=== PATIENT | female | born 1970 | race Caucasian/White ===

== ENCOUNTER 2019-12-29 20:37 | Emergency (ER) | payer BC, SELFPAY ==
[2019-12-29 20:40] VITALS: BP 122/75; PULSE 84; RESP 16; TEMP 36.5; O2SAT 96; BMI 24.7
--- NOTE | 2019-12-29 21:04 | DI.RAD.S_ITS ---
PROCEDURE: XR ANKLE RT MIN 3V INDICATIONS: R ankle pain, dog ran into foot TECHNIQUE: 3 views of the ankle were acquired. COMPARISON: None. FINDINGS: Bones: No fractures or dislocations. Ankle mortise is normally aligned. No suspicious bony lesions. Soft tissues: No tibiotalar joint effusion. Achilles tendon appears normal. IMPRESSION: No fracture. No osseous lesion. If symptoms and/or clinical suspicion for pathology persists, further assessment with repeat radiographs (7-10 days) or advanced imaging (e.g. CT, MRI or bone scan) may be helpful. Dictated by: Betty Bonilla MD, PhD on 12/29/2019 at 21:27 Approved by: Betty Bonilla MD, PhD on 12/29/2019 at 21:28
--- NOTE | 2019-12-29 21:04 | DI.RAD.S_ITS ---
PROCEDURE: XR FOOT RT MIN 3V INDICATIONS: R ankle pain, dog ran into foot TECHNIQUE: 3 views of the foot were acquired. COMPARISON: [facility], , FOOT 3V RIGHT, 09/08/2016, 9:57. FINDINGS: Bones: No fractures or dislocations. No suspicious bony lesions. Lesion in the 5th metatarsal is stable compared to prior examination compatible compatible with benign etiology. Soft tissues: No tibiotalar joint effusion. Achilles tendon appears normal. IMPRESSION: No fracture. No osseous lesion. If symptoms and/or clinical suspicion for pathology persists, further assessment with repeat radiographs (7-10 days) or advanced imaging (e.g. CT, MRI or bone scan) may be helpful. Dictated by: Betty Bonilla MD, PhD on 12/29/2019 at 21:28 Approved by: Betty Bonilla MD, PhD on 12/29/2019 at 21:29
[2019-12-29 22:38] VITALS: BP 110/71; PULSE 74; O2SAT 96
--- NOTE | 2019-12-30 | ED_ITS ---
HPI - Extremity Injury (Lower) General Chief Complaint: Extremity Injury, Lower Stated Complaint: RIGHT ANKLE INJURY Time Seen by Provider: 12/29/19 23:48 Source: patient and family Mode of arrival: Family Vehicle Limitations: no limitations History of Present Illness HPI Narrative: Patient here for injury to the right ankle. Her dog knocked her over. Denies any other injuries. Complains of lateral malleolus pain and swelling. Pain radiates proximally. There is no pain directly over the proximal fibula. Has tingling to the toes. Patient states that she has crutches at home Related Data Home Medications Medication Instructions Recorded Confirmed eletriptan [Relpax] #0 06/15/17 06/16/18 bupropion HCl 150 mg tablet,12 hr 150 mg PO DAILY 03/04/18 06/16/18 sustained-release Previous Rx's Medication Instructions Recorded azithromycin 250 mg tablet See Rx Instructions PO .COMPLEX #6 06/16/18 tab fluticasone propionate 50 2 spray NASAL DAILY #9.9 gram 06/16/18 mcg/actuation nasal spray,suspension Allergies Allergy/AdvReac Type Severity Reaction Status Date / Time amoxicillin [AMOXICILLIN] Allergy Mild RASH Verified 06/16/18 08:25 clindamycin [CLINDAMYCIN] Allergy Mild RASH Verified 06/16/18 08:25 Review of Systems Review of Systems Narrative: GENERAL: Denies chills, fatigue, malaise, fever, sweats. MUSCULOSKELETAL: denies weakness, complains joint pain, or bony pain SKIN: Denies rash, skin lesions NEUROLOGIC: Denies weakness, headache, numbness, change in speech, confusion, seizures, incoordination. PSYCHIATRIC: No concerning psychosocial issues. ROS Unobtainable: All systems reviewed & are unremarkable except as noted in HPI and below Patient History Medical History (Updated 12/30/19 @ 00:10 by Luis Alberto Lopez MD) Migraines (Chronic) Social History Smoking Status: Never smoker Smoking Status: Never smoker Exam Narrative Exam Narrative: GENERAL: patient appears stated age. Well-nourished, well- developed patient, in no distress, not toxic HEAD: Atraumatic. Normocephalic. EXTREMITIES: Right knee to toes exposed. Nontender knee. No proximal fibular tenderness. Foot is warm soft and pink with strong pedal pulse with light touch intact to toes although patient states feels tingly to the toes. Limited range of motion at the ankle due to pain. There is edema and bruising to the lateral malleolus. No gross deformity. Unable to bear weight due to pain. NEURO: AOx4. SKIN: No rash or erythema of visible areas PSYCH: Not anxious, is cooperative Initial Vital Signs Initial Vital Signs: Vital Signs Temperature 97.7 F 12/29/19 20:40 Pulse Rate 84 12/29/19 20:40 Respiratory Rate 16 12/29/19 20:40 Blood Pressure 122/75 12/29/19 20:40 Pulse Oximetry 96 12/29/19 20:40 Procedures Orthopedic Splinting/Casting Injury #1: Side: right Lower Extremity Injury Location: ankle Lower Extremity Immobilizer: AirCast Post splinting neuro exam: intact Post splinting vascular exam: intact Placed by: Nursing Course Orders Ordered: ED Orders 12/29/19 21:04 XR ankle RT min 3V Stat XR foot RT min 3V Stat Discontinued Medications Hydrocodone Bitart/Acetaminophen (Vicodin 5/325 Prepack) 1 bottle MISC SEEINSTR ONE Stop: 12/30/19 00:07 Last Admin: 12/30/19 00:12 Dose: 1 bottle Documented by: ARGELIA Hydrocodone Bitart/Acetaminophen ([place] 5/325) 1 tab PO NOW ONE Stop: 12/30/19 00:07 Last Admin: 12/30/19 00:12 Dose: 1 tab Documented by: ARGELIA Ondansetron HCl (Zofran Odt) 4 mg SL NOW ONE Stop: 12/30/19 00:07 Last Admin: 12/30/19 00:12 Dose: 4 mg Documented by: ARGELIA Reevaluation(s) Reevaluation #1: Reviewed x-rays with patient. She understands may need a repeat x-ray if not improving 7 or 10 days. Time: 00:13 Vital Signs Vital signs: Vital Signs - 8 hr 12/29/19 20:40 12/29/19 22:38 12/30/19 00:02 Temperature 97.7 F Pulse Rate 84 74 68 Respiratory Rate 16 16 Blood Pressure 122/75 110/71 117/72 Pulse Oximetry 96 96 100 12/30/19 00:22 Temperature 97.6 F Pulse Rate Respiratory Rate Blood Pressure Pulse Oximetry MDM - Extremity Injury (Lower) Differential Diagnosis Differential diagnosis: Likely ankle sprain and strain and ankle fracture Imaging Data Extremity x-ray #1: Radiologist's Impression: [address] [address] XRay Report Signed Patient: Emily Kaba [facility]#: [id number] : 1970Acct:[id number] Age/Sex: 49 / FDate of Service: 12/29/19 Loc: ED Accession Number: [id number] Procedure: XR ankle RT min 3V Ordering Provider: Luis Alberto Lopez MD PROCEDURE: XR ANKLE RT MIN 3V INDICATIONS: R ankle pain, dog ran into foot TECHNIQUE: 3 views of the ankle were acquired. COMPARISON: None. FINDINGS: Bones: No fractures or dislocations. Ankle mortise is normally aligned. No suspicious bony lesions. Soft tissues: No tibiotalar joint effusion. Achilles tendon appears normal. IMPRESSION: No fracture. No osseous lesion. If symptoms and/or clinical suspicion for pathology persists, further assessment with repeat radiographs (7-10 days) or advanced imaging (e.g. CT, MRI or bone scan) may be helpful. Dictated by: Betty Bonilla MD, PhD on 12/29/2019 at 21:27 Approved by: Betty Bonilla MD, PhD on 12/29/2019 at 21:28 Extremity x-ray #2: Radiologist's Impression: [address] [address] XRay Report Signed Patient: Emily Kaba [facility]#: [id number] : 1970Acct:[id number] Age/Sex: 49 / FDate of Service: 12/29/19 Loc: ED Accession Number: [id number] Procedure: XR foot RT min 3V Ordering Provider: Luis Alberto Lopez MD PROCEDURE: XR FOOT RT MIN 3V INDICATIONS: R ankle pain, dog ran into foot TECHNIQUE: 3 views of the foot were acquired. COMPARISON: [facility], FOOT 3V RIGHT, 09/08/2016, 9:57. FINDINGS: Bones: No fractures or dislocations. No suspicious bony lesions. Lesion in the 5th metatarsal is stable compared to prior examination compatible compatible with benign etiology. Soft tissues: No tibiotalar joint effusion. Achilles tendon appears normal. IMPRESSION: No fracture. No osseous lesion. If symptoms and/or clinical suspicion for pathology persists, further assessment with repeat radiographs (7-10 days) or advanced imaging (e.g. CT, MRI or bone scan) may be helpful. Dictated by: Betty Bonilla MD, PhD on 12/29/2019 at 21:28 Approved by: Betty Bonilla MD, PhD on 12/29/2019 at 21:29 MDM Narrative Medical decision making narrative: No further imaging indicated this time. Patient happy with treatment plan and desires discharge home. is driving. Discharge Plan Departure Patient Disposition: Home Clinical Impression: Ankle sprain and strain Discharge Date/Time: 12/30/19 00:22 Instructions: How to Use Crutches, DI for Ankle Sprain Activity Restrictions/Additional Instructions: Use crutches and ankle splint for comfort. No weight-bearing. No driving or operating machinery. Called provided orthopedic office on Wednesday for office recheck next week. May need repeat x-ray or need MRI of the ankle if not improving 7-10 days. May use cool pack to the ankle 20 minutes at a time as needed for pain and swelling. Keep ankle elevated when at rest. May use pain pill at night for helping to sleep. Otherwise may use ibuprofen during the daytime. Return if worse or if any questions or concerns. Prescriptions: No Action azithromycin 250 mg tablet See Rx Instructions PO .COMPLEX Qty: 6 RF: 0 fluticasone propionate [Flonase Allergy Relief] 50 mcg/actuation spray,suspension 2 spray NASAL DAILY Qty: 9.9 RF: 0 eletriptan [Relpax] 40 MG tablet Qty: 0 RF: 0 bupropion HCl [Wellbutrin SR] 150 mg tablet sustained-release 12 hr 150 mg PO DAILY RF: 0 Referrals: Shiv Garzon MD [Physician] - Kathi Worthington PA-C [Primary Care Provider] -
[2019-12-30 00:02] VITALS: BP 117/72; PULSE 68; RESP 16; O2SAT 100
[2019-12-30] MEDS: ONDANSETRON 4 MG ODT SL (00:12)
[2019-12-30] MEDS: HYDROCODONE/ACET 5/325 PREPACK 1 BOTTLE MISC (00:12)
[2019-12-30] MEDS: HYDROCODONE/ACET 5/325 TABLET 1 TAB PO (00:12)
[2019-12-30 00:22] VITALS: TEMP 36.4
== END 2019-12-30 00:22 | disposition home or self-care (01) ==
PROVIDERS: Emergency Provider Emergency Medicine; Family Provider Physician Assistant; PCP Physician Assistant
DX: S93.401A Sprain of unspecified ligament of right ankle, initial encounter (principal); W01.0XXA Fall on same level from slipping, tripping and stumbling without subsequent striking against object, initial encounter
CPT/HCPCS: 73610; 73630; 99283

== ENCOUNTER → 2020-01-22 07:15 | Outpatient (CLI) | payer BC, SELFPAY ==
--- NOTE | 2020-01-22 | DI.MRI.S_ITS ---
PROCEDURE: MR HAND RT WO/W CON INDICATIONS: Bitten by dog, initial encounter TECHNIQUE: Noncontrast coronal T1 spin echo and T2 fast spin echo with fat saturation, axial proton density fast spin echo and T2 fast spin echo with fat saturation, axial T1 spin echo with fat saturation, sagittal T1 spin echo and STIR through the hand and fingers. Post-contrast axial, coronal, and sagittal T1 spin echo through the hand and fingers. COMPARISON: Outside Film, CR, XR HAND 1 OR 2 VIEWS RIGHT, 01/15/2020, 12:29. FINDINGS: Image quality: Excellent. Bones: The bones are normally aligned, without marrow contusions or fractures. No bony erosions or periosteal reaction. No suspicious intra-osseous lesions. Interphalangeal joint(s): The accessory and proper collateral ligaments appear intact. The volar plate demonstrates normal morphology. The extensor central slips appear intact on sagittal images. Metacarpophalangeal joint(s): The accessory and proper collateral ligaments appear intact, as well as the volar plate and adjacent deep transverse metacarpal ligaments. The sagittal bands of the extensor veliz appear normal. Extensor apparatus: The central slips insert normally on the middle phalangeal base. The conjoint and terminal tendons insert normally on the distal phalangeal bases. More proximal portions of the extensor tendons also appear normal. Flexor apparatus: The flexor digitorum superficialis and profundus tendons both appear intact. All annular and cruciform pulleys appear intact, without adjacent soft tissue edema. Soft tissues: There is a cutaneous marker within the volar aspect of the 3rd digit distally at the level of the middle phalanx. There is an associated small ulcer or penetrating injury within the underlying soft tissues with an associated focal loculated region of T2 hyperintensity and enhancement measuring approximately 0.7 x 0.2 x 0.6 cm. There is associated adjacent subcutaneous edema and enhancement. This extends to the flexor tendons of the 3rd digit with mild associated peritendinous enhancement. No tendon sheath fluid collections. Visualized muscles demonstrate normal bulk and internal signal. No intramuscular masses identified. Visualized flexor and extensor tendons appear intact. IMPRESSION: 1. Small focal penetrating soft tissue injury in the volar aspect of the 3rd digit corresponding to reported history of dog bite. An associated loculated subcutaneous collection demonstrating internal enhancement likely represents an infectious phlegmon. No discrete drainable fluid collection to suggest an abscess. 2. Associated mild segmental peritendinitis of the flexor tendons of the 3rd digit without tenosynovitis. 3. No fractures or evidence of osteomyelitis. Dictated by: Tj Christopher M.D. on 01/22/2020 at 13:10 Approved by: Tj Christopher M.D. on 01/22/2020 at 13:21
== END ==
PROVIDERS: Family Provider Physician Assistant; PCP Physician Assistant; Referring Provider Physician Assistant; Visit Provider Physician Assistant Medical
DX: S69.81XA Other specified injuries of right wrist, hand and finger(s), initial encounter (principal); M79.644 Pain in right finger(s); M79.89 Other specified soft tissue disorders; M77.9 Enthesopathy, unspecified; W54.0XXA Bitten by dog, initial encounter
CPT/HCPCS: 73220; A9579

== ENCOUNTER → 2020-01-24 13:59 | Outpatient (CLI) | payer BC, SELFPAY ==
[2020-01-24 16:26] LABS: COVID19 -Nasal RAPID Negative (Negative)
== END ==
PROVIDERS: Family Provider Physician Assistant; PCP Physician Assistant; Visit Provider Nurse Practitioner
DX: Z11.59 Encounter for screening for other viral diseases (principal)
CPT/HCPCS: 87635

== ENCOUNTER → 2020-01-24 14:09 | Outpatient (CLI) | payer BC, SELFPAY ==
[2020-01-24 15:13] LABS: Add Manual Diff / Slide Review NO; Basophils Absolute Auto 100 /uL (0-100); Basophils Percent Auto 0.7 % (0-2); Eosinophils Absolute Auto 300 /uL (0-450); Eosinophils Percent Auto 3.2 % (2-4); Hematocrit 39.9 % (36-46); Hemoglobin 13.1 g/dL (12.0-16.0); Lymphocytes Absolute Auto 2100 /uL (1100-4500); Lymphocytes Percent Auto 25.8 % (25-40); Mean Corpuscular HGB Conc 32.9 % (30-36); Mean Corpuscular Hemoglobin 30.6 PG (26-34); Mean Corpuscular Volume 92.8 fL (80-100); Monocytes Absolute Auto 700 /uL (0-900); Monocytes Percent Auto 8.7 % (3-14); Neutrophils Absolute Auto 5000 /uL (1500-7000); Neutrophils Percent Auto 61.6 % (50-75); Platelet Count 267 X10^3/uL (150-400); Red Cell Distribution Width 13.4 % (11.6-14.8); White Blood Cell Count 8.1 X10^3/uL (4.5-11.0)
== END ==
PROVIDERS: Family Provider Physician Assistant; PCP Physician Assistant; Referring Provider Orthopaedic Surgery; Visit Provider Orthopaedic Surgery
DX: Z01.812 Encounter for preprocedural laboratory examination (principal); Z11.59 Encounter for screening for other viral diseases
CPT/HCPCS: 36415; 85025; 87635

== ENCOUNTER 2020-01-25 12:19 | Day surgery (SDC) | payer BC, SELFPAY ==
[2020-01-24 14:30] VITALS: BMI 24.5
[2020-01-25] VITALS (7 sets, daily range): BP systolic 109–127; BP diastolic 66–86; PULSE 70–83; RESP 16–22; TEMP 36.6–37.2; O2SAT 94–100; BMI 24.4
--- NOTE | 2020-01-25 14:33 | PM.PREOP ---
Pre-operative Note COVID-19 COVID-19 status: Negative Result date/Date tested (Pos, Neg/Pending): 01/24/20 Interval Note History & Physical reviewed/Exam performed by Physician: Yes Changes to H&P: No
--- NOTE | 2020-01-25 15:10 | SUR.OPER ---
Supine on padded OR bed, head on pillow, left arm secured on padded arm boards at <90 degrees abduction, legs uncrossed,right arm draped free on black hand table safety belt at thigh, tape over blanket over lower legs.
[2020-01-25] MEDS: CEFAZOLIN 1 GM/50 ML FROZ.PIGGY IV (15:40)
[2020-01-25] MEDS: SODIUM CHLORIDE 0.9% 1,000 ML, GENTAMICIN 80 MG IRR (15:45)
[2020-01-25] MEDS: LIDOCAINE 1% 30 ML INJ (15:46)
[2020-01-25] MEDS: BUPIVACAINE 0.25% (PF) VIAL 30 ML INJ (15:48)
--- NOTE | 2020-01-25 15:57 | P.OP_ITS ---
Operative Date/Time/Diagnoses Date of procedure: 01/25/20 Time of procedure: 15:57 Pre-op diagnosis: Right middle finger infection status post dog bite Post-op diagnosis: same Procedure & Clinicians Procedure: Irrigation and debridement of right middle finger middle phalanx Same procedure as scheduled: Yes Indications: [age] year old female with a recurrent infection from a dog bite over her middle finger right hand. She had failed conservative management and requested operative intervention. Risks and benefits of surgery were dis cussed and appropriate consents were obtained. Surgeon: Luis Alberto Pacheco Click Yes if Unassisted: Yes Anesthesia Type: MAC +/- and Local Operative Notes Findings: None Closure Type: primary Specimen(s): other (Wound culture) Estimated Blood Loss (mL): 2 Procedure in detail: Patient brought to the operating room and placed on the table. Attention was turned towards the well-marked right middle finger. A time-out was performed. Antibiotics were held for cultures. The hand was prepped and draped in the standard sterile fashion. A digital nerve block was performed with a combination of plain lidocaine and Marcaine. She was given some sedation by anesthesia. A 1 cm longitudinal incision was made in the midline over the middle of the middle phalanx of the right hand. We bluntly spread this up and took cultures. There was no evidence of obvious purulence. There was a hard nodule adherent to the undersurface of the skin al so scar down over the tendon sheath. We worked our way around to freed up and then used a scalpel to sharply excise it and free it from the skin. We used a curette to clear up the remaining soft tissue. At the end there did not appear to be any further nodule or infection. We could easily visualize that the tendon sheath was intact below this. The wound was copiously irrigated. We loosely approximated it with nylon suture. Sterile dressing was placed. She was then brought to recovery with no complications. Complications: none Post-operative Condition: stable Disposition: PACU Plan for aftercare: Outpatient. Sent home on [facility].
== END 2020-01-25 16:40 | disposition home or self-care (01) ==
PROVIDERS: Family Provider Physician Assistant; PCP Physician Assistant; Referring Provider Orthopaedic Surgery; Visit Provider Orthopaedic Surgery
PROC: (CPT 11421; principal; 2020-01-25 13:45)
DX: R22.31 Localized swelling, mass and lump, right upper limb (principal); L08.9 Local infection of the skin and subcutaneous tissue, unspecified; S61.252A Open bite of right middle finger without damage to nail, initial encounter; L90.5 Scar conditions and fibrosis of skin; W54.0XXA Bitten by dog, initial encounter; M79.7 Fibromyalgia; I73.00 Raynaud's syndrome without gangrene; F32.9 Major depressive disorder, single episode, unspecified; J45.909 Unspecified asthma, uncomplicated; Z87.891 Personal history of nicotine dependence
CPT/HCPCS: 11421; 87070; 87075; 87077; 87147; 87186; 87205; J2250; J2704; J3010

== ENCOUNTER → 2021-01-15 10:53 | Outpatient (CLI) | payer BC, SELFPAY ==
[2021-01-15 13:07] LABS: COVID19 -Nasal RAPID Negative (Negative)
== END ==
PROVIDERS: Family Provider Physician Assistant; PCP Physician Assistant; Visit Provider Nurse Practitioner
DX: Z20.822 Contact with and (suspected) exposure to COVID-19 (principal); R51.9 Headache, unspecified
CPT/HCPCS: 87635

== ENCOUNTER 2022-04-08 15:58 | Emergency (ER) | payer BC, SELFPAY ==
[2022-04-08 16:05] VITALS: BP 146/81; PULSE 79; RESP 18; TEMP 36.8; O2SAT 99; BMI 23.1
--- NOTE | 2022-04-08 16:09 | DI.RAD.S_ITS ---
PROCEDURE: XR CHEST 1V INDICATIONS: chest pain TECHNIQUE: One view of the chest was acquired. COMPARISON: [facility], , CHEST 2 VIEW, 08/09/2014, 15:36. FINDINGS: Surgical changes and devices: None. Lungs and pleura: Lungs are clear. No pleural effusions or pneumothorax. Mediastinum: Mediastinal contours appear normal. Heart size is normal. Bones and chest wall: No suspicious bony lesions. Overlying soft tissues appear unremarkable. IMPRESSION: No acute cardiopulmonary disease. Dictated by: Dave Maza M.D. on 04/08/2022 at 16:56 Approved by: Dave Maza M.D. on 04/08/2022 at 16:56
[2022-04-08] MEDS: ASPIRIN 81 MG CHEW TAB 324 MG PO (16:19)
[2022-04-08 16:28] LABS: Add Manual Diff / Slide Review NO; Basophils Absolute Auto 100 /uL (0-100); Basophils Percent Auto 1.2 % (0-2); Eosinophils Absolute Auto 200 /uL (0-450); Eosinophils Percent Auto 3.3 % (2-4); Hemoglobin 12.4 g/dL (12.0-16.0); Lymphocytes Absolute Auto 2200 /uL (1100-4500); Lymphocytes Percent Auto 31.5 % (25-40); Mean Corpuscular HGB Conc 32.7 % (30-36); Mean Corpuscular Hemoglobin 30.4 PG (26-34); Monocytes Absolute Auto 700 /uL (0-900); Monocytes Percent Auto 9.4 % (3-14); Neutrophils Absolute Auto 3800 /uL (1500-7000); Neutrophils Percent Auto 54.6 % (50-75); Platelet Count 282 X10^3/uL (150-400); Red Blood Cell Count 4.09 X10^6/uL (4.0-5.2); Red Cell Distribution Width 14.4 % (11.6-14.8)
[2022-04-08 16:35] LABS: INR 1.1 (0.9-1.3); Prothrombin Time 12.1 SECONDS (10.1-12.7)
[2022-04-08 16:38] LABS: PTT Partial Thromboplastin Tim 28 SECONDS (26-36)
[2022-04-08 16:39] LABS: Alanine Aminotransferase 21 IU/L (<35); Albumin 4.6 g/dL (3.5-5.0); Albumin Globulin Ratio 1.4 (1.0-2.8); Alkaline Phosphatase 60 U/L (38-126); Aspartate Aminotransferase 25 IU/L (14-36); Bilirubin Total 0.7 mg/dL (0.2-1.3); Blood Urea Nitrogen 12 mg/dL (7-17); Calcium 9.1 mg/dL (8.4-10.2); Carbon Dioxide 28 mmol/L (22-32); Chloride 101 mmol/L (98-107); Creatine Kinase 75 U/L (30-135); Estimated Glomerular Filt Rate > 60 mL/min (>60); Globulin 3.3 g/dL (1.7-4.1); Glucose 78 mg/dL (70-100); HEMOLYSIS < 15 (0-50); Lipase 148 U/L (23-300); Potassium 3.4 mmol/L (3.4-5.1); Sodium 141 mmol/L (137-145); Total Protein 7.9 g/dL (6.3-8.2)
[2022-04-08 16:40] VITALS: BP 116/77; PULSE 72; RESP 17; O2SAT 98
--- NOTE | 2022-04-08 16:47 | ED.CHESTPAIN ---
HPI - Chest Pain General Chief Complaint: Chest Pain Stated Complaint: chest pain, dizzy, nausea Time Seen by Provider: 04/08/22 16:35 Source: patient Mode of arrival: Ambulatory Limitations: no limitations Limitations: no limitations History of Present Illness HPI narrative: This 51-year-old female patient presents with left greater than right upper chest discomfort that started about 1 week ago. Pain is intermittent. There is no palpitations. There is no dyspnea or diaphoresis. She denies URI symptoms. She is no headache, sore throat, fever cough. She vapes. She is no history of cardiopulmonary disease. She denies recent illness. She denies recent injury. She does have fibromyalgia. She is no back, shoulder or extremity discomfort. She is no abdominal, no nausea vomiting. Related Data Home Medications Medication Instructions Recorded Confirmed eletriptan 40 mg tablet (Relpax) 40 mg PO PRN PRN Migraine Headache 06/15/17 01/25/20 ##0 bupropion HCl 150 mg tablet,12 hr 150 mg PO DAILY 03/04/18 01/25/20 sustained-release (Wellbutrin SR) Previous Rx's Medication Instructions Recorded cephalexin 500 mg capsule (Keflex) 500 mg PO QID #28 caps 01/25/20 methocarbamol 750 mg tablet 750 mg PO Q6H PRN muscle spasm #60 04/08/22 tabs Allergies Allergy/AdvReac Type Severity Reaction Status Date / Time amoxicillin [AMOXICILLIN] Allergy Mild RASH Verified 01/25/20 12:45 clindamycin [CLINDAMYCIN] Allergy Mild RASH Verified 01/25/20 12:45 Review of Systems Review of Systems ROS Unobtainable: All systems reviewed & are unremarkable except as noted in HPI and below Constitutional Constitutional: Reports as per HPI, Denies chills, Denies fever(s) and Denies headache(s) Eyes Eyes: Denies change in vision ENT Ears, Nose, Mouth, and Throat: Denies vertigo, Reports dizziness, Denies headache(s), Denies sinus pain and Denies sore throat Cardiovascular Cardiovascular: Reports chest pain, Reports chest pain at rest, Denies pedal edema and Denies dyspnea Respiratory Respiratory: Denies chest congestion, Denies cough and Denies dyspnea Gastrointestinal Gastrointestinal: Denies abdominal pain and Denies nausea Genitourinary Genitourinary: Denies dysuria Musculoskeletal Musculoskeletal: Reports as per HPI Integumentary/Breasts Skin/Breast: Denies rash Neurologic Neurologic: Denies confusion, Denies vertigo, Reports dizziness and Denies headache(s) Psychiatric Psychiatric: Denies confusion Hematologic/Lymphatic On Anticoagulants: No Patient History Medical History Arthritis Asthma Depression Dog bite (12/31/19) IBS (irritable bowel syndrome) Migraines Raynaud's syndrome Right ankle injury (12/31/19) Spinal stenosis Surgical History History of carpal tunnel surgery of right wrist Social History household members: spouse Smoking Status: Former smoker alcohol intake: current Smoking Status: Former smoker alcohol intake frequency: a few times a week Substance Use Type: does not use Exam Initial Vital Signs Initial Vital Signs: Vital Signs Temperature 98.2 F 04/08/22 16:05 Pulse Rate 79 04/08/22 16:05 Respiratory Rate 18 04/08/22 16:05 Blood Pressure 146/81 H 04/08/22 16:05 Pulse Oximetry 99 04/08/22 16:05 Oxygen Delivery Method 04/08/22 16:05 Const General: cooperative, healthy appearing, comfortable, well developed and well groomed [facility] Head: normal to inspection, normocephalic and atraumatic Mouth: oral mucosae normal Throat: posterior oropharynx normal Eyes General: Yes appearance normal, both eyes and all related structures Neck Neck: normal visual inspection, full ROM, no meningeal signs, No tender and No JVD Chest Chest: normal inspection of the chest, No tenderness and No rash Resp Effort & Inspection: normal respiratory effort Auscultation: clear to auscultation bilaterally Cardio Rate: regular rate Rhythm: regular rhythm Heart Sounds: S1 normal, S2 normal and no murmurs GI Inspection: normal to inspection Palpation: soft and No tender Auscultation: normal bowel sounds Back/Spine/Pelvis Back: normal to inspection, No back tenderness and No CVA tenderness Skin General: no rashes or lesions noted Neuro General: patient alert, patient awake, patient oriented x3 and no focal motor deficits Extrem General: normal to inspection, full ROM, no pedal edema and no calf tenderness Course Course Course Narrative: Her discomfort is not currently reproducible with exam. Cardiopulmonary evaluation is benign. I suspect symptoms are associated with her fibromyalgia. She is advised to use Tylenol and/or Advil along with Robaxin. She should discuss a possible stress test with her PCM. Orders Ordered: ED Orders 04/08/22 16:09 XR chest 1V Stat Complete Blood Count AUTO DIFF Stat Comprehensive Metabolic Panel Stat Lipase Stat Magnesium Stat Partial Thromboplastin Time Stat Prothrombin Time INR Stat Troponin & CK Cardiac Panel Stat 04/08/22 16:23 Covid-19 + FLU A/B + RSV - PCR Stat 04/08/22 16:24 EKG-12 Lead Stat Discontinued Medications Aspirin (Aspirin 81 Mg Chew Tab) 324 mg PO NOW ONE Stop: 04/08/22 16:09 Last Admin: 04/08/22 16:19 Dose: 324 mg Documented By: RB Aspirin (Aspirin 81 Mg Chew Tab) 324 mg PO NOW ONE Stop: 04/08/22 16:49 Last Admin: 04/08/22 16:55 Dose: Not Given Documented By: RB Vital Signs Vital signs: Vital Signs - 8 hr 04/08/22 16:05 Temperature 98.2 F Pulse Rate 79 Respiratory Rate 18 Blood Pressure 146/81 H Pulse Oximetry 99 Oxygen Delivery Method Room Air MDM - Chest Pain Lab Data Result diagrams: 04/08/22 16:09 04/08/22 16:09 Labs: Lab Results 04/08/22 04/08/22 04/08/22 Range/Units 16:09 16:09 16:09 WBC 7.0 (4.5-11.0) X10^3/uL RBC 4.09 (4.0-5.2) X10^6/uL Hgb 12.4 (12.0-16.0) g/dL Hct 38.0 (36-46) % MCV 93.0 (80-100) fL MCH 30.4 (26-34) PG MCHC 32.7 (30-36) % RDW 14.4 (11.6-14.8) % Plt Count 282 (150-400) X10^3/uL Neut % (Auto) 54.6 (50-75) % Lymph % (Auto) 31.5 (25-40) % [place] % (Auto) 9.4 (3-14) % Eos % (Auto) 3.3 (2-4) % Baso % (Auto) 1.2 (0-2) % Neut # (Auto) 3800 (5969-5523) /uL Lymph # (Auto) 2200 (2232-6003) /uL [place] # (Auto) 700 (0-900) /uL Eos # (Auto) 200 (0-450) /uL Baso # (Auto) 100 (0-100) /uL PT 12.1 (10.1-12.7) SECONDS INR 1.1 (0.9-1.3) APTT 28 (26-36) SECONDS Sodium 141 (137-145) mmol/L Potassium 3.4 (3.4-5.1) mmol/L Chloride 101 (98-107) mmol/L Carbon Dioxide 28 (22-32) mmol/L BUN 12 (7-17) mg/dL Creatinine 0.60 (0.52-1.04) mg/dL Estimated GFR > 60 (>60) mL/min BUN/Creatinine Ratio 20.0 (6-22) Glucose 78 (70-100) mg/dL Calcium 9.1 (8.4-10.2) mg/dL Magnesium (1.6-2.3) mg/dL Total Bilirubin 0.7 (0.2-1.3) mg/dL AST 25 (14-36) IU/L ALT 21 (<35) IU/L Alkaline Phosphatase 60 (38-126) U/L Total Creatine Kinase 75 (30-135) U/L CK-MB (CK-2) TNP CK-MB (CK-2) Rel Index TNP Troponin I < 0.012 (0.01-0.034) ng/mL Total Protein 7.9 (6.3-8.2) g/dL Albumin 4.6 (3.5-5.0) g/dL Globulin 3.3 (1.7-4.1) g/dL Albumin/Globulin Ratio 1.4 (1.0-2.8) Lipase (23-300) U/L SARS-CoV-2 (PCR) (Negative) Influenza A (RT-PCR) (NEGATIVE) Influenza B (RT-PCR) (NEGATIVE) RSV (PCR) (Negative) 04/08/22 04/08/22 Range/Units 16:09 16:23 WBC (4.5-11.0) X10^3/uL RBC (4.0-5.2) X10^6/uL Hgb (12.0-16.0) g/dL Hct (36-46) % MCV (80-100) fL MCH (26-34) PG MCHC (30-36) % RDW (11.6-14.8) % Plt Count (150-400) X10^3/uL Neut % (Auto) (50-75) % Lymph % (Auto) (25-40) % [place] % (Auto) (3-14) % Eos % (Auto) (2-4) % Baso % (Auto) (0-2) % Neut # (Auto) (6507-2208) /uL Lymph # (Auto) (8714-9053) /uL [place] # (Auto) (0-900) /uL Eos # (Auto) (0-450) /uL Baso # (Auto) (0-100) /uL PT (10.1-12.7) SECONDS INR (0.9-1.3) APTT (26-36) SECONDS Sodium (137-145) mmol/L Potassium (3.4-5.1) mmol/L Chloride (98-107) mmol/L Carbon Dioxide (22-32) mmol/L BUN (7-17) mg/dL Creatinine (0.52-1.04) mg/dL Estimated GFR (>60) mL/min BUN/Creatinine Ratio (6-22) Glucose (70-100) mg/dL Calcium (8.4-10.2) mg/dL Magnesium 2.0 (1.6-2.3) mg/dL Total Bilirubin (0.2-1.3) mg/dL AST (14-36) IU/L ALT (<35) IU/L Alkaline Phosphatase (38-126) U/L Total Creatine Kinase (30-135) U/L CK-MB (CK-2) CK-MB (CK-2) Rel Index Troponin I (0.01-0.034) ng/mL Total Protein (6.3-8.2) g/dL Albumin (3.5-5.0) g/dL Globulin (1.7-4.1) g/dL Albumin/Globulin Ratio (1.0-2.8) Lipase 148 (23-300) U/L SARS-CoV-2 (PCR) Negative (Negative) Influenza A (RT-PCR) Flu a negative (NEGATIVE) Influenza B (RT-PCR) Flu b negative (NEGATIVE) RSV (PCR) Negative (Negative) Imaging Data Chest x-ray: Radiologist's Impression: Normal ECG Data Attestation: I personally reviewed and interpreted this ECG as follows: (Normal sinus rhythm rate 66 beats per minute. Normal intervals. No ectopy. No acute ST T wave changes. Normal study.) Discharge Plan Departure Patient Disposition: Home Clinical Impression: Atypical chest pain Instructions: DI for Atypical Chest Pain Activity Restrictions/Additional Instructions: You have no evidence of cardiac or pulmonary problems. Fibromyalgia is difficult to explain, I suspect her discomfort is related to fibromyalgia. Continue your current medications. Tylenol or Advil as needed for your current chest wall discomfort. Robaxin every 6 hours as needed. This is a mild muscle relaxant. Take the pain medication the same time you take the muscle relaxant. Follow-up with your PCM. Discussed the possibility of a stress test with your doctor. Return here if symptoms become more severe. Prescriptions: New methocarbamol 750 mg tablet 750 mg PO Q6H PRN (Reason: muscle spasm) Qty: 60 0RF No Action eletriptan [Relpax] 40 MG tablet 40 mg PO PRN PRN (Reason: Migraine Headache) Qty: 0 bupropion HCl [Wellbutrin SR] 150 mg tablet sustained-release 12 hr 150 mg PO DAILY cephalexin [Keflex] 500 mg capsule 500 mg PO QID Qty: 28 0RF Referrals: Kathi Worthington PA-C [Primary Care Provider] - Stand Alone Forms: Patient Portal/API
[2022-04-08 16:50] LABS: Troponin I < 0.012 ng/mL (0.01-0.034)
[2022-04-08 17:07] LABS: Influenza A - CEPHEID Flu A NEGATIVE (NEGATIVE); Influenza B - CEPHEID Flu B NEGATIVE (NEGATIVE); Respiratory Syncytial Virus Negative (Negative)
[2022-04-08 17:09] LABS: COVID-19 CEPHEID 4-PLEX PCR Negative (Negative)
[2022-04-08 17:30] VITALS: BP 121/83; PULSE 70; O2SAT 99
[2022-04-08 18:27] VITALS: BP 111/78; PULSE 73; O2SAT 99
== END 2022-04-08 18:36 | disposition home or self-care (01) ==
PROVIDERS: Emergency Medicine; Emergency Provider Emergency Medicine; Family Provider Physician Assistant; PCP Physician Assistant; Referring Provider Family Medicine
DX: R07.89 Other chest pain (principal); Z20.822 Contact with and (suspected) exposure to COVID-19
CPT/HCPCS: 0241U; 36415; 71045; 80053; 82550; 83690; 83735; 84484; 85025; 85610; 85730; 93005; 93010; 99284

== ENCOUNTER → 2022-11-11 15:24 | Outpatient (CLI) | payer BC, SELFPAY ==
--- NOTE | 2022-11-11 15:25 | DI.MG.S_ITS ---
BILATERAL DIGITAL SCREENING MAMMOGRAM 3D/2D WITH CAD: 11/11/2022 CLINICAL: Routine screening. Family history of breast cancer. Comparison is made to exam dated: 11/21/2015 mammogram - [facility]. There are scattered areas of fibroglandular density in both breasts (category b / 25%-50% glandular tissue). Current study was also evaluated with a Computer Aided Detection (CAD) system. No significant masses, calcifications, or other findings are seen in either breast. There has been no significant interval change. IMPRESSION: NEGATIVE There is no mammographic evidence of malignancy. A 1 year screening mammogram is recommended. Based on the Tyrer Cuzick model (a risk assessment model) the patient's lifetime risk is 10.1% and her 10 year risk is 2.6%. According to the ACR, ACS, and NCCN guidelines, an annual breast MRI exam along with mammogram is recommended if the patient's lifetime risk is 20% or greater. This exam was interpreted at Station ID: [id number]. NOTE: For mammograms, a report in lay terms will be sent to the patient. Approximately 15% of breast malignancies will not be visualized mammographically. In the management of a palpable breast mass, a negative mammogram must not discourage biopsy of a clinically suspicious lesion. Electronically Signed By: Carlos A artis/greta:11/13/2022 17:13:55 letter sent: Normal Exam ACR BI-RADS Category 1: Negative [id number]
== END ==
PROVIDERS: Family Provider Physician Assistant; PCP Physician Assistant; Referring Provider Physician Assistant; Visit Provider Physician Assistant
DX: Z12.31 Encounter for screening mammogram for malignant neoplasm of breast (principal); Z80.3 Family history of malignant neoplasm of breast
CPT/HCPCS: 77063; 77067

== ENCOUNTER → 2023-04-12 14:46 | Outpatient (CLI) | payer BC, SELFPAY ==
--- NOTE | 2023-04-12 | DI.MRI.S_ITS ---
PROCEDURE: MR LUMBAR SPINE WO CON INDICATIONS: Radiculopathy, lumbar region TECHNIQUE: Noncontrast sagittal T1 spin echo and T2 fast echo, sagittal STIR, and T2 fast spin echo through the lumbar spine. In cases with scoliosis, additional coronal T2 fast spin echo may be performed. COMPARISON: [facility], MR, L-SPINE WITHOUT CONTRAST, 04/16/2008, 18:00. [facility], MR, MR LUMBAR SPINE WO CON, 10/29/2016, 17:05. FINDINGS: Image quality: Excellent. Alignment and Curvature: There is normal bony alignment. Bone Marrow: Marrow is of normal overall signal. Foci of increased T1 and T2 signal at L1-L2 are unchanged consistent with hemangiomas. No acute vertebral body compression fractures. Incidental note of limbus vertebra at L4 is present. Spinal Cord: Conus medullaris terminates at the L2 level. Visualized cord demonstrates normal signal and size. Paraspinous Soft Tissues: No paravertebral masses. Discs: Multilevel [id number] disc desiccation. T12-L1: No disc bulge, spinal stenosis or foraminal narrowing. No interval change. L1-L2: No disc bulge, spinal stenosis or foraminal narrowing. No interval change. L2-L3: Minimal disc bulge without spinal stenosis or foraminal narrowing. Facet and ligamentum flavum hypertrophy are present. L3-L4: Mild disc bulge without spinal stenosis. Minimal bilateral foraminal narrowing, slightly progressive. Facet and ligamentum flavum hypertrophy are present. L4-L5: Mild disc bulge with right foraminal protrusion. Moderate right and mild to moderate left foraminal narrowing, unchanged. Facet and ligamentum flavum hypertrophy are present. L5-S1: Mild disc bulge without spinal stenosis. Mild bilateral foraminal narrowing with facet and ligamentum flavum hypertrophy. No interval change. IMPRESSION: Multilevel degenerative changes with minimal areas of progression as noted above. Foraminal narrowing remains most prominent L4-5 secondary to protrusion as well as facet/ligamentum flavum arthropathy. Dictated by: Kasey Perez M.D. on 04/12/2023 at 22:35 Approved by: Kasey Perez M.D. on 04/12/2023 at 22:38
== END ==
LOC: MRI 14:46
PROVIDERS: Family Provider Physician Assistant; PCP Physician Assistant; Referring Provider Physical Medicine & Rehabilitation; Visit Provider Physical Medicine & Rehabilitation
DX: M47.26 Other spondylosis with radiculopathy, lumbar region; M48.061 Spinal stenosis, lumbar region without neurogenic claudication; M51.16 Intervertebral disc disorders with radiculopathy, lumbar region
CPT/HCPCS: 72148

== ENCOUNTER 2023-08-07 06:22 | Emergency (ER) | payer BC, SELFPAY ==
--- NOTE | 2023-08-07 06:30 | DI.CT.S_ITS ---
PROCEDURE: CT ABDOMEN PELVIS W CON INDICATIONS: L SIDED ABD PAIN BLUNT INJURY TECHNIQUE: After the administration of intravenous contrast, axial sections acquired from the lung bases to the pubic symphysis. Coronal and sagittal reformats were performed. For radiation dose reduction, the following was used: automated exposure control, adjustment of mA and/or kV according to patient size. COMPARISON: CT, CT-IVP, 05/18/2006, 9:12. FINDINGS: Image quality: Diagnostic. Lower Chest: Bibasilar atelectasis. ABDOMEN: Liver: Hypodense nodules in liver are most likely cysts. No solid mass. Gallbladder: No radiopaque gallstones or wall thickening. Biliary ducts: No biliary dilation. Pancreas: No ductal dilation. Spleen: Size is within normal limits. Adrenal Glands: No adrenal nodules. Kidneys and Ureters: No hydronephrosis. No solid mass. No complex renal cystic lesion which requires follow up. Stomach and Bowel: Normal colonic caliber, without significant wall thickening. Question mild thickening of jejunum. Peritoneum: No abnormal intraperitoneal fluid. No free air. Ventral Wall: No significant ventral hernia. Abdominal Nodes: No retroperitoneal or mesenteric adenopathy by size criteria. Vessels: Aorta and inferior vena cava are normal in size. PELVIS: Pelvic Organs: Unremarkable. Bladder: No bladder wall thickening, accounting for underdistention. Pelvic Nodes: No enlarged lymph nodes. Miscellaneous: No inguinal hernias are seen. Bones: No aggressive osseous abnormality. IMPRESSION: 1. No definitive traumatic visceral injuries. 2. Question mild jejunal thickening. Differential diagnoses are artifact from peristalsis versus mild regional enteritis. Recommend clinical correlation. 3. No free fluid in abdomen or pelvis. 4. Bibasilar atelectasis. No significant discrepancy with the cook [facility] radiology preliminary report. Dictated by: Dave Maza M.D. on 08/07/2023 at 8:19 Approved by: Dave Maza M.D. on 08/07/2023 at 8:25
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
[2023-08-07 06:33] VITALS: BP 138/73; PULSE 82; RESP 16; TEMP 36.6; O2SAT 98; BMI 22.6
[2023-08-07 06:40] VITALS: PULSE 69; O2SAT 97
[2023-08-07 06:41] VITALS: BP 119/83; PULSE 71; O2SAT 97
[2023-08-07 06:42] LABS: Add Manual Diff / Slide Review NO; Basophils Absolute Auto 0 /uL (0-100); Basophils Percent Auto 0.6 % (0-2); Eosinophils Absolute Auto 100 /uL (0-450); Eosinophils Percent Auto 1.8 % (2-4); Hematocrit 38.6 % (36-46); Hemoglobin 12.9 g/dL (12.0-16.0); Lymphocytes Absolute Auto 2200 /uL (1100-4500); Lymphocytes Percent Auto 29.6 % (25-40); Mean Corpuscular HGB Conc 33.4 % (30-36); Mean Corpuscular Hemoglobin 31.7 PG (26-34); Mean Corpuscular Volume 94.9 fL (80-100); Monocytes Absolute Auto 800 /uL (0-900); Monocytes Percent Auto 10.5 % (3-14); Neutrophils Absolute Auto 4200 /uL (1500-7000); Neutrophils Percent Auto 57.5 % (50-75); Platelet Count 312 X10^3/uL (150-400); Red Blood Cell Count 4.07 X10^6/uL (4.0-5.2); Red Cell Distribution Width 13.5 % (11.6-14.8); White Blood Cell Count 7.4 X10^3/uL (4.5-11.0)
[2023-08-07] MEDS: SODIUM CHLORIDE 0.9% 1,000 ML 1000 ML IV (06:44)
[2023-08-07] MEDS: MORPHINE 4 MG/ML INJ IV (06:44)
[2023-08-07 06:57] LABS: Alanine Aminotransferase 29 IU/L (<35); Albumin 4.7 g/dL (3.5-5.0); Albumin Globulin Ratio 1.6 (1.0-2.8); Alkaline Phosphatase 74 U/L (38-126); Aspartate Aminotransferase 37 IU/L (14-36); BUN Creatinine Ratio 15.8 (6-22); Bilirubin Total 0.9 mg/dL (0.2-1.3); Blood Urea Nitrogen 9 mg/dL (7-17); Calcium 9.2 mg/dL (8.4-10.2); Carbon Dioxide 29 mmol/L (22-32); Chloride 107 mmol/L (98-107); Estimated Glomerular Filt Rate > 60 mL/min (>60); Glucose 102 mg/dL (70-100); HEMOLYSIS < 15 (0-50); Sodium 140 mmol/L (137-145); Total Protein 7.7 g/dL (6.3-8.2)
[2023-08-07 07:42] LABS: Appearance Urine UA CLEAR; Bilirubin Urine UA NEGATIVE (NEGATIVE); Color Urine UA YELLOW; Glucose Urine UA NEGATIVE (Negative); Ketones Urine UA NEGATIVE (NEGATIVE); Leukocyte Esterase Urine UA NEGATIVE (NEGATIVE); Nitrite Urine UA NEGATIVE (Negative); Occult Blood Urine UA TRACE-INTACT (Negative); Protein Urine UA NEGATIVE (Negative); Specific Gravity Urine UA <=1.005 (1.000-1.035); Urobilinogen Urine UA 0.2 E.U./dL (0.2)
[2023-08-07 07:51] LABS: pH Urine UA 6.5 (4.5-8.0)
[2023-08-07 07:53] LABS: RBC Urine 0-1/HPF (0-5/HPF); Urine Volume 10mL (spun)
[2023-08-07 07:54] LABS: Bacteria Urine None Seen; Culture Indicated Urine Cult Not Indicated; Squamous Epithelial Cell Urine None Seen (0-5/HPF); WBC Urine None Seen (0-5/HPF)
[2023-08-07] MEDS: KETOROLAC 30 MG/ML VIAL 15 MG IV (08:25)
[2023-08-07 08:40] VITALS: BP 119/87; PULSE 58; RESP 16; TEMP 36.6; O2SAT 98
== END 2023-08-07 08:41 | disposition home or self-care (01) ==
PROVIDERS: Emergency Medicine; Emergency Provider Emergency Medicine; Family Provider Physician Assistant; PCP Physician Assistant
DX: R10.9 Unspecified abdominal pain (principal)
CPT/HCPCS: 36415; 74177; 80053; 81001; 85025; 96361; 96374; 96375; 99284; J1885; J2270; Q9967

== ENCOUNTER → 2023-10-26 13:46 | Outpatient (CLI) | payer BC, SELFPAY ==
[2023-10-26 15:17] LABS: Hemoglobin A1C% w Est Avg Glu 5.5 % (4.0-6.0)
== END ==
PROVIDERS: Family Provider Physician Assistant; PCP Physician Assistant; Referring Provider Physician Assistant; Visit Provider Physician Assistant
DX: Z13.1 Encounter for screening for diabetes mellitus (principal); Z83.3 Family history of diabetes mellitus
CPT/HCPCS: 36415; 83036

== ENCOUNTER → 2023-12-24 08:39 | Outpatient (CLI) | payer BC, SELFPAY ==
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
--- NOTE | 2023-12-24 08:40 | DI.MG.S_ITS ---
BILATERAL DIGITAL DIAGNOSTIC MAMMOGRAM 3D/2D: 12/24/2023 CLINICAL: Bloody nipple discharge left breast. Comparison is made to exams dated: 11/21/2015 mammogram and 11/11/2022 mammogram - [facility]. There are scattered areas of fibroglandular density (category b / 25%-50% glandular tissue). No significant masses, calcifications, or other findings are seen in either breast. IMPRESSION: INCOMPLETE: NEED ADDITIONAL IMAGING EVALUATION No mammographic evidence of malignancy. A targeted ultrasound is recommended and will immediately follow. Based on the Tyrer Cuzick model (a risk assessment model) the patient's lifetime risk is 10.0% and her 10 year risk is 2.7%. According to the ACR, ACS, and NCCN guidelines, an annual breast MRI exam along with mammogram is recommended if the patient's lifetime risk is 20% or greater. This exam was interpreted at Station ID: [id number]. NOTE: For mammograms, a report in lay terms will be sent to the patient. Approximately 15% of breast malignancies will not be visualized mammographically. In the management of a palpable breast mass, a negative mammogram must not discourage biopsy of a clinically suspicious lesion. Electronically Signed By: Syd Saleh M.D. slc/:12/24/2023 09:33:38 ACR BI-RADS Category 0: Incomplete: Need Additional Imaging Evaluation
== END ==
PROVIDERS: Family Provider Physician Assistant; PCP Physician Assistant; Referring Provider Physician Assistant; Visit Provider Physician Assistant
DX: N64.52 Nipple discharge (principal); R92.2 Inconclusive mammogram
CPT/HCPCS: 76642; 77066; G0279

== ENCOUNTER 2024-10-17 18:38 | Emergency (ER) | payer BC, SELFPAY ==
[2024-10-17 18:51] VITALS: BP 141/82; PULSE 90; RESP 18; TEMP 37; O2SAT 96; BMI 23.0
--- NOTE | 2024-10-17 19:03 | DI.RAD.S_ITS ---
PROCEDURE: XR CHEST 1V INDICATIONS: Chest Pain TECHNIQUE: One view of the chest was acquired. COMPARISON: [facility], , XR CHEST 1V, 04/08/2022, 16:20. [facility], , CHEST 2 VIEW, 08/09/2014, 15:36. FINDINGS: Surgical changes and devices: None. Lungs and pleura: Lungs are clear. No pleural effusions or pneumothorax. Mediastinum: Mediastinal contours appear normal. Heart size is normal. Bones and chest wall: No suspicious bony lesions. Overlying soft tissues appear unremarkable. IMPRESSION: No acute cardiopulmonary abnormality is seen. Dictated by: Addison Nicholson M.D. on 10/17/2024 at 19:39 Approved by: Addison Nicholson M.D. on 10/17/2024 at 19:40
--- NOTE | 2024-10-17 19:06 | EKG_ITS ---
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
[2024-10-17 19:13] LABS: Add Manual Diff / Slide Review NO; Hematocrit 39.2 % (36-46); Hemoglobin 13.3 g/dL (12.0-16.0); Lymphocytes Absolute Auto 2900 /uL (1100-4500); Mean Corpuscular HGB Conc 34.0 % (30-36); Mean Corpuscular Hemoglobin 32.7 PG (26-34); Mean Corpuscular Volume 96.1 fL (80-100); Platelet Count 260 X10^3/uL (150-400)
[2024-10-17 19:20] LABS: INR 0.9 (0.9-1.3); Prothrombin Time 10.2 SECONDS (9.4-12.5)
[2024-10-17 19:23] LABS: PTT Partial Thromboplastin Tim 27 SECONDS (25.1-36.5)
[2024-10-17 19:25] LABS: Alanine Aminotransferase 47 IU/L (<35); Albumin 4.6 g/dL (3.5-5.0); Albumin Globulin Ratio 1.6 (1.0-2.8); Alkaline Phosphatase 87 U/L (38-126); Blood Urea Nitrogen 9 mg/dL (7-17); Calcium 9.3 mg/dL (8.4-10.2); Carbon Dioxide 22 mmol/L (22-32); Chloride 102 mmol/L (98-107); Creatine Kinase 94 U/L (30-135); Estimated Glomerular Filt Rate > 60 mL/min (>60); Globulin 2.9 g/dL (1.7-4.1); Glucose 100 mg/dL (70-99); HEMOLYSIS < 15 (0-50); Lipase 246 U/L (23-300); Magnesium 1.8 mg/dL (1.6-2.3); Potassium 3.7 mmol/L (3.4-5.1); Sodium 133 mmol/L (137-145); Total Protein 7.5 g/dL (6.3-8.2)
[2024-10-17 19:36] LABS: NT-proBNP (BNP-Adult 18+) < 20 pg/mL (<125); Troponin I < 0.012 ng/mL (0.01-0.034)
--- NOTE | 2024-10-18 07:01 | ED_ITS ---
HPI - Chest Pain General Chief Complaint: Chest Pain Stated Complaint: irregular heart rhythms ongoing for an hour Time Seen by Provider: 10/17/24 20:01 Source: patient Mode of arrival: Ambulatory Related Data Home Medications ?Medication ?Instructions ?Recorded ?Confirmed eletriptan 40 mg tablet (Relpax) 40 mg PO PRN PRN Migr montse Headache 06/15/17 01/25/20 ##0 bupropion HCl 150 mg tablet,12 hr 150 mg PO DAILY 02/0501/25/20 sustained-release (Wellbutrin SR) Previous Rx's ?Medication ?Instructions ?Recorded cephalexin 500 mg capsule (Keflex) 500 mg PO QID #28 c aps 01/25/20 methocarbamol 750 mg tablet 750 mg PO Q6H PRN muscle s pasm #60 04/08/22 tabs hydrocodone 5 mg-acetaminophen 325 1 tab PO Q6H PRN pa in #10 tabs 08/07/23 mg tablet Allergies Allergy/AdvReac Type Severity Reaction Status Date / Time amoxicillin (AMOXICILLIN) Allergy Mild RASH Verified 10/17/24 18:54 clindamycin (CLINDAMYCIN) Allergy Mild RASH Verified 10/17/24 18:54 Patient History Medical History Right ankle injury (12/31/19) Arthritis Asthma Depression IBS (irritable bowel syndrome) Raynaud's syndrome Spinal stenosis Dog bite (12/31/19) Migraines Surgical History History of carpal tunnel surgery of right wrist Social History household members: spouse Smoking Status: Current every day smoker alcohol intake: current Smoking Status: Current every day smoker tobacco type: cigarettes alcohol intake frequency: a few times a week Exam Initial Vital Signs Initial Vital Signs: Vital Signs Temperature 98.6 F 10/17/24 18:51 Pulse Rate 90 10/17/24 18:51 Respiratory Rate 18 10/17/24 18:51 Blood Pressure 141/82 H 10/17/24 18:51 Pulse Oximetry 96 10/17/24 18:51 Oxygen Delivery Method Room Air 10/17/24 18:51 Course Orders Ordered: Discontinued Medications Aspirin (Aspirin 81 Mg Chew Tab) 324 mg PO NOW ONE Stop: 10/17/24 19:03 MDM - Chest Pain Lab Data 10/17/24 19:01 10/17/24 19:01 Labs: Lab Results 10/17/24 Range/Units 19:01 WBC 7.7 (4.5-11.0) X10^3/uL RBC 4.08 (4.0-5.2) X10^6/uL Hgb 13.3 (12.0-16.0) g/dL Hct 39.2 (36-46) % MCV 96.1 (80-100) fL MCH 32.7 (26-34) PG MCHC 34.0 (30-36) % RDW 14.0 (11.6-14.8) % Plt Count 260 (150-400) X10^3/uL Neut % (Auto) 49.9 L (50-75) % Lymph % (Auto) 38.4 (25-40) % [place] % (Auto) 7.8 (3-14) % Eos % (Auto) 3.0 (2-4) % Baso % (Auto) 0.9 (0-2) % Neut # (Auto) 3800 (2184-0898) /uL Lymph # (Auto) 2900 (2002-2583) /uL [place] # (Auto) 600 (0-900) /uL Eos # (Auto) 200 (0-450) /uL Baso # (Auto) 100 (0-100) /uL PT 10.2 (9.4-12.5) SECONDS INR 0.9 (0.9-1.3) APTT 27 (25.1-36.5) SECONDS Sodium 133 L (137-145) mmol/L Potassium 3.7 (3.4-5.1) mmol/L Chloride 102 (98-107) mmol/L Carbon Dioxide 22 (22-32) mmol/L BUN 9 (7-17) mg/dL Creatinine 0.57 (0.52-1.04) mg/dL Estimated GFR > 60 (>60) mL/min BUN/Creatinine Ratio 15.8 (6-22) Glucose 100 H (70-99) mg/dL Calcium 9.3 (8.4-10.2) mg/dL Magnesium 1.8 (1.6-2.3) mg/dL Total Bilirubin 0.7 (0.2-1.3) mg/dL AST 47 H (14-36) IU/L ALT 47 H (<35) IU/L Alkaline Phosphatase 87 (38-126) U/L Total Creatine Kinase 94 (30-135) U/L Troponin I < 0.012 (0.01-0.034) ng/mL NT-Pro-B Natriuret Pep < 20 (<125) pg/mL Total Protein 7.5 (6.3-8.2) g/dL Albumin 4.6 (3.5-5.0) g/dL Globulin 2.9 (1.7-4.1) g/dL Albumin/Globulin Ratio 1.6 (1.0-2.8) Lipase 246 (23-300) U/L Discharge Plan Departure Patient Disposition: Left Without Being Seen Clinical Impression: Patient left before evaluation by physician Prescriptions: No Action eletriptan [Relpax] 40 MG tablet 40 mg PO PRN PRN (Reason: Migraine Headache) Qty: 0 bupropion HCl [Wellbutrin SR] 150 mg tablet sustained-release 12 hr 150 mg PO DAILY methocarbamol 750 mg tablet 750 mg PO Q6H PRN (Reason: muscle spasm) Qty: 60 0RF cephalexin [Keflex] 500 mg capsule 500 mg PO QID Qty: 28 0RF hydrocodone-acetaminophen 5-325 mg tablet 1 tab PO Q6H PRN (Reason: pain) Qty: 10 0RF
== END 2024-10-17 20:03 | disposition left against medical advice (07) ==
PROVIDERS: Emergency Provider Family Medicine; Family Provider Physician Assistant; PCP Physician Assistant
DX: R07.9 Chest pain, unspecified (principal); R68.84 Jaw pain
CPT/HCPCS: 36415; 71045; 80053; 82550; 83690; 83735; 83880; 84484; 85025; 85610; 85730; 93005; 99283

== ENCOUNTER → 2024-11-08 14:57 | Outpatient (CLI) | payer BC, SELFPAY ==
--- NOTE | 2024-11-08 14:58 | DI.NM.S_ITS ---
PROCEDURE: NM EXERCISE TREADMILL NON NUC COMPARISON: None. INDICATIONS: CHEST PAIN FINDINGS: The patient exercised for 7 minutes and 32 seconds, reaching 102% of maximum predicted heart rate. Appropriate BP response to exercise. No diagnostic ST changes and no ectopy during exercise or recovery. 8/10 chest pain and lightheadedness at peak exercise that resolved by end of the recovery. IMPRESSION: Low risk, probably normal stress ECG only stress with fair exercise tolerance (10.1METs, MARIET[place] -1%). Non-diagnostic 8/10 chest pain and lightheadedness at peak exercise that resolved by end of recovery. Correlate clinical to exclude ischemic heart disease. Dictated by: Aida Lam MD on 11/09/2024 at 14:41 Approved by: Aida Lam MD on 11/09/2024 at 14:45
== END ==
LOC: NUCM 14:57
PROVIDERS: Family Provider Physician Assistant; PCP Physician Assistant; Referring Provider Family Medicine; Visit Provider Family Medicine
DX: R07.9 Chest pain, unspecified (principal); R42 Dizziness and giddiness
CPT/HCPCS: 93017

== ENCOUNTER → 2025-02-28 09:56 | Outpatient (CLI) | payer BC, SELFPAY ==
--- NOTE | 2025-02-28 09:58 | DI.MG.S_ITS ---
MM screening mammo BI: 02/28/2025. BI-RADS: 2 CLINICAL: 54-year old female for bilateral screening mammogram. Tyrer-Cuzick lifetime risk of 10.4%. No personal or first-degree family history of breast cancer. Current reported family history of breast cancer: paternal grandmother, paternal aunt and paternal aunt's daughter. PRIOR EXAMS 12/24/2023, 11/11/2022, 11/21/2015. MAMMOGRAPHY TECHNIQUE: 2D and 3D (tomosynthesis) digital mammographic views obtained, with additional images as needed for full coverage. Current study was also evaluated with a Computer Aided Detection (CAD) system. DENSITY B. There are scattered areas of fibroglandular density. MAMMOGRAPHY FINDINGS Bilateral: Typically-benign vascular calcifications noted. No suspicious mass, asymmetry, microcalcification, or other abnormality seen. IMPRESSION: * No evidence of malignancy with benign findings. RECOMMENDATIONS Bilateral * Annual screening mammography. OVERALL ASSESSMENT CATEGORY BI-RADS-2: Benign. The [employer] recommends annual screening mammography beginning at age 40 for women with average risk of breast cancer. ELECTRONICALLY SIGNED: Laura Rutherford M.D. on 02/28/2025 at 02:59:02 PM PT Interpreting Station ID: [id number]
== END ==
LOC: MAMMO 09:57
PROVIDERS: Family Provider Physician Assistant; PCP Physician Assistant; Referring Provider Physician Assistant; Visit Provider Physician Assistant
DX: Z12.31 Encounter for screening mammogram for malignant neoplasm of breast (principal); Z80.3 Family history of malignant neoplasm of breast; R92.1 Mammographic calcification found on diagnostic imaging of breast
CPT/HCPCS: 77063; 77067